=== PATIENT | female | born 1985 | race African-American/Black ===

== ENCOUNTER 2021-08-27 17:45 | Emergency (ER) | payer MEDICAID, SELFPAY ==
[2021-08-27] MEDS ORDERED: HYDROcodone/Acetaminophen 5/325 mg Tablet ONE (18:47)
== END 2021-08-27 19:02 | disposition home or self-care (01) ==
LOC: CSHERS 17:45
DX: K02.9 Dental caries, unspecified (principal)
CPT/HCPCS: 99282